=== PATIENT | male | born 2000 | race Caucasian/White ===

== ENCOUNTER 2019-01-30 08:07 | Emergency (ER) | payer MEDICAID ==
[~2019-01-30] VITALS: Ht 180.3 cm; Wt 113.4 kg
--- NOTE | ~2019-01-30 | EKG ---
[place], [place] ELECTROCARDIOGRAM REPORT NAME: KEVIN ALEXANDER UNIT #: [id number] ROOM: DOCTOR: EPIPHANY DRAFT REPORT BIRTHDATE: [birth year] [facility] Test Date: 2019-01-30 Test Time: 08:10:56 Pat Name: KEVIN ALEXANDER Department: Room: Gender: [employer]: : 2000 Requested By: CAROLYNN YU Order Number: [id number] Reading MD: Measurements Intervals [place] Rate: 71 P: 57 IA: 172 QRS: 82 QRSD: 90 T: 59 QT: 400 QTc: 435 Interpretive Statements Sinus arrhythmia ST elev, probable normal early repol pattern Compared to ECG 12/05/2018 23:13:22 ST (T wave) deviation now present Sinus rhythm no longer present Electronically Signed On 01-31-2019 9:08:44 PDT by Kurt Atkinson MD CM:EKGRPT:ELECTROCARDIOGRAM REPORT [id number] CAROLYNN BENNETT DRAFT REPORT CAROLYNN YU DO
--- NOTE | ~2019-01-30 | EKG ---
[place], [place] ELECTROCARDIOGRAM REPORT NAME: KEVIN ALEXANDER UNIT #: [id number] ROOM: DOCTOR: EPIPHSTACY DRAFT REPORT BIRTHDATE: [birth year] [facility] Test Date: 2019-01-30 Test Time: 08:10:56 Pat Name: KEVIN ALEXANDER Department: Patient ID: ELOH- Room: Gender: M [employer]: : 2000 Requested By: CAROLYNN YU Order Number: [id number] Reading MD: Kurt Atkinson MD Measurements Intervals [place] Rate: 71 P: 57 NC: 172 QRS: 82 QRSD: 90 T: 59 QT: 400 QTc: 435 Interpretive Statements Sinus arrhythmia ST elev, probable normal early repol pattern Compared to ECG 12/05/2018 23:13:22 ST (T wave) deviation now present Sinus rhythm no longer present Electronically Signed On 01-31-2019 9:08:44 PDT by Kurt Atkinson MD CM:EKGRPT:ELECTROCARDIOGRAM REPORT [id number] CAROLYNN BENNETT DRAFT REPORT CAROLYNN YU DO
[2019-01-30 08:30] LABS: BASO # 0.1 10*3/uL (0.0-0.1); BASO % 0.6 % (0.0-1.0); EOS # 0.1 10*3/uL (0.0-0.4); EOS % 1.2 % (1.0-4.0); HEMATOCRIT 48.3 % (42.0-52.0); HEMOGLOBIN 16.2 g/dl (14.0-18.0); LYMPH # 1.7 10*3/uL (1.3-4.4); LYMPH % 18.4 % (27.0-41.0); MEAN CELL VOLUME 90.3 fl (80.0-94.0); MEAN CORPUSCULAR HGB 30.3 pg (27.0-31.0); MEAN CORPUSCULAR HGB CONC 33.5 g/dl (33.0-37.0); MEAN PLATELET VOLUME 11.1 fl (9.6-12.3); MONO # 0.7 10*3/uL (0.1-1.0); NEUT # 6.4 10*3/uL (2.3-7.9); NEUT % 71.4 % (47.0-73.0); PLATELET COUNT AUTOMATED 197 10*3/uL (130-400); RED BLOOD COUNT 5.35 10*6/uL (4.50-5.90)
[2019-01-30 08:37] LABS: ACT PARTIAL THROMBO TIME 27.1 SECONDS (20.0-32.1); INTERNATIONAL NORM RATIO 0.9 (2.0-3.5)
[2019-01-30 08:41] LABS: ALKALINE PHOSPHATASE 73 U/L (45-117); BUN 23 mg/dl (7-24); CHLORIDE 108 mmol/L (98-107); CREATININE 1.03 mg/dL (0.70-1.30); LIPASE 99 U/L (73-393); POTASSIUM 4.1 mmol/L (3.5-5.1); SGOT/AST 20 IU/L (3-35); SGPT/ALT 24 U/L (12-78); SODIUM 140 mmol/L (136-145); TOTAL PROTEIN 7.7 gm/dL (6.4-8.2)
[2019-01-30 08:42] LABS: TROPONIN I < 0.015 ng/ml (<0.045)
[2019-01-30] MEDS ORDERED: PEPCID20 MG PO (10:44)
== END 2019-01-30 11:11 | disposition home or self-care (01) ==
LOC: ED 08:07
PROVIDERS: Emergency Medicine
DX: K29.70 Gastritis, unspecified, without bleeding (principal); R07.9 Chest pain, unspecified; R06.02 Shortness of breath; R20.0 Anesthesia of skin; H53.8 Other visual disturbances; R05 Cough; R25.1 Tremor, unspecified; R53.83 Other fatigue